=== PATIENT | female | born 1935 | race Caucasian/White ===

== ENCOUNTER → 2016-05-12 | Outpatient (CLI) | payer MEDICARE, OTHER ==
[~2016-05-12] MED LIST: ACET500T98; AMO500 PO; DIPH-232 PO; DULA1.5P SQ; EPOE10006 IJ; EZET1TAB10; FENO135C3 PO; GABA300C; MULT1TAB6 PO; PIOG45TA6; SERT25TA; TRAM50TA2; [UNRECOGNIZED DRUG - CODE] IJ
--- NOTE | 2016-05-12 14:04 | RADRPT ---
PROCEDURE: XR left knee. CLINICAL INDICATION: Knee pain. TECHNIQUE: AP weightbearing, lateral weight bearing and sunrise views are available for review. 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 There is no evidence of loosening of the prosthesis. There is diffuse osteopenia No acute fracture or dislocation is seen.No osseous lesions are identifi ed. The soft tissues are unremarkable . IMPRESSION: Diffuse osteopenia Unremarkable constrained total knee replacement. RPTAT: [facility] .Delebrt Aguilar MD, MD Date Time Electronically viewed and signed by .Delbert Aguilar MD, MD on 05/12/2016 14:03 .B/
--- NOTE | 2016-05-12 17:05 | HKNOTE ---
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 Original surgery was in 2011, but due to loose tibial component, patient had to undergo total knee revision surgery. Since patient was last seen, she continues to do well. Patient denies any significant pain complaints though does state that she has an occasional 1/10 pain with activity. Patient does not have crepitus to the patella when she flexes and extends. Denies any pain with crepitus. Patient is ambulating normally with no assistive device. Patient is very pleased status post surgery. Vital signs: Blood pressure is 140/62, temperature 98.3, pulse 68, respiratory rate 12, height 5 feet, weight 165 pounds. PHYSICAL EXAMINATION: Wound to the left knee is well healed. No tenderness to palpation. Patient has 0-110 degrees flexion/extension. Normal sensory examination to light touch. Gait is non-antalgic, and patient is walking comfortably. X-ray to the left knee on 05/12/2016 showing all components well aligned and appeared to be well attached and integrated to the bone. No signs of any lucency between metal and bone. ASSESSMENT AND PLAN: Dental prophylaxis instructions reiterated today. Patient continues to do well status post surgery with little to no complaints. At this stage, patient may follow up as needed, but it was communicated to the patient that if she should have any complication or problem, she may follow up as soon as possible as we would be glad to see her. The patient was given our standard plastic card containing instructions for the use of prophylactic antibiotics as a guideline should infection develop anywhere in the body, there be the need for manipulation or scoping of the genitourinary tract or gastrointestinal tract, or for prophylaxis for dentistry. These instructions pertain for the rest of the patient's life. Dictated By: LINDA RODRIGUEZ for FABRICE MENDEZ MD, KP/MAEVE Conf#: [id number] DID#: [id number]
== END | disposition home or self-care (01) ==
LOC: HKI 13:39
DX: Z47.1 Aftercare following joint replacement surgery (principal); Z96.652 Presence of left artificial knee joint
CPT/HCPCS: 73562; G0463

== ENCOUNTER → 2017-06-29 | Outpatient (CLI) | END | disposition home or self-care (01) ==